=== PATIENT | male | born 1955 | race Caucasian/White ===

== ENCOUNTER 2025-04-11 18:33 | Inpatient (IN) | payer MEDICARE, BC ==
[~2025-04-11] VITALS: Ht 162.6 cm; Wt 66.1 kg
[2025-04-11] MEDS ORDERED: DAPS100T22 PO (18:53)
[2025-04-11] MEDS ORDERED: ATOR1TAB21 PO (18:53)
[2025-04-11] MEDS ORDERED: CHOL25CA2 PO (18:53)
[2025-04-11] MEDS ORDERED: PANT20TA6 PO (18:53)
[2025-04-11] MEDS ORDERED: METF500T13 PO (18:53)
[2025-04-11] MEDS ORDERED: ISOVUE-370 76% 100 ML VIAL As Ordered ONE (19:56)
[2025-04-11 20:29] LABS: PLATELET COUNT, AUTOMATED 215 10^3/uL (150-450)
[2025-04-11 20:45] LABS: EOSINOPHILS 1 % (0-3); LYMPHOCYTES 27 % (16-44); MONOCYTES 7 % (0-5); NEUTROPHILS 65 % (28-66)
[2025-04-11 20:46] LABS: PLATELET CLUMPS SMALL AMT; PLATELET ESTIMATE NORMAL (NORMAL)
[2025-04-11 20:52] LABS: CK-MB VALUE MASS < 1.0 NG/ML (<3.6)
[2025-04-11 21:00] LABS: CPK CREATINE PHOSPHOKINASE 80 U/L (46-171)
[2025-04-11 22:21] LABS: CK-MB VALUE MASS 1.0 NG/ML (<3.6)
[2025-04-11 22:23] LABS: CPK CREATINE PHOSPHOKINASE 79.0 U/L (46-171); MB/CK RELATIVE INDEX 1.26 (< OR =4)
[2025-04-12] MEDS: IPRATROPIUM 0.5 MG/ALBUTEROL 2.5 MG INH SOL UD 3 ML NEB ONE (00:06)
[2025-04-12] MEDS ORDERED: GLUCAGON INJ 1 MG VIAL SC PRN (02:00)
[2025-04-12] MEDS ORDERED: ACETAMINOPHEN 325 MG TAB PO PRN (02:00)
[2025-04-12] MEDS ORDERED: MAALOX 30 ML SUSP *UDC PO PRN (02:00)
[2025-04-12] MEDS ORDERED: MOM 30 ML SUSPENSION UDC PO PRN (02:00)
[2025-04-12] MEDS ORDERED: ALBUTEROL SULFATE 2.5 MG/0.5 ML INH CONCENTRATE NEB SOLN NEB PRN (02:00)
[2025-04-12] MEDS ORDERED: GLUCOSE 4 GM CHEW PO PRN (02:00)
[2025-04-12] MEDS ORDERED: DEXTROSE 50% 50 ML SYRINGE IV PRN (02:00)
[2025-04-12 02:19] LABS: VENOUS BASE EXCESS 2.8 (-2.0-2.0); VENOUS HCO3 27.8 MMOL/L (23.0-27.0); VENOUS O2 SATURATION 88.2 % (60.0-80.0); VENOUS PARTIAL PRESSURE CO2 44.5 mmHg (38.0-50.0); VENOUS PARTIAL PRESSURE O2 54.3 mmHg (30.0-50.0); VENOUS PH 7.414 UNITS (7.330-7.430); VENOUS STANDARD HCO3 26.7 MMOL/L; VENOUS TOTAL CO2 29.2 MMOL/L (24.0-28.0)
[2025-04-12] MEDS: AZITHROMYCIN 250 MG TABLET PO ONE (02:38)
[2025-04-12] MEDS: IPRATROPIUM 0.5 MG/ALBUTEROL 2.5 MG INH SOL UD 3 ML NEB SCH (02:38)
[2025-04-12 02:46] LABS: ALT/SGPT 63 U/L (7.0-40); AST/SGOT 42 U/L (<34); CALCIUM LEVEL 8.6 MG/DL (8.3-10.6); CARBON DIOXIDE LEVEL 27 MMOL/L (20-31); CHLORIDE LEVEL 100 MMOL/L (98-107); CREATININE FOR GFR 0.89 MG/DL (0.70-1.30); GLOMERULAR FILTRATION RATE > 90.0 (>42); MAGNESIUM LEVEL 1.7 MG/DL (1.8-2.4); POTASSIUM SERUM 3.2 MMOL/L (3.5-5.1); SODIUM LEVEL 140 MMOL/L (136-145)
[2025-04-12] MEDS: MAGNESIUM OXIDE 400 MG TAB PO ONE (04:25)
[2025-04-12] MEDS: POTASSIUM CHLORIDE 10MEQ SR TABLET PO ONE (04:26)
[2025-04-12 07:03] LABS: PLATELET COUNT, AUTOMATED 195 10^3/uL (150-450)
[2025-04-12 07:18] LABS: ALT/SGPT 65.0 U/L (7.0-40); AST/SGOT 43.0 U/L (<34); CALCIUM LEVEL 8.5 MG/DL (8.3-10.6); CARBON DIOXIDE LEVEL 27.0 MMOL/L (20-31); CHLORIDE LEVEL 101.0 MMOL/L (98-107); CREATININE FOR GFR 0.93 MG/DL (0.70-1.30); GLOMERULAR FILTRATION RATE 87.8 (>42); MAGNESIUM LEVEL 1.8 MG/DL (1.8-2.4); POTASSIUM SERUM 3.5 MMOL/L (3.5-5.1); SODIUM LEVEL 142.0 MMOL/L (136-145)
[2025-04-12 07:21] LABS: INR 0.94
[2025-04-12] MEDS: DOCUSATE SODIUM 100 MG CAPSULE PO SCH (07:50)
[2025-04-12] MEDS: INSULIN LISPRO (NovoLOG) PER UNIT SC SCH ×2 (07:50→22:30)
[2025-04-12] MEDS: AUGMENTIN 875 MG TAB PO SCH (07:50)
[2025-04-12] MEDS: PANTOPRAZOLE 40MG TAB PO SCH (07:50)
[2025-04-12] MEDS: OSELTAMIVIR PHOSPHATE 75 MG CAP PO SCH (07:50)
[2025-04-12] MEDS ORDERED: PANT-23 PO (08:06)
[2025-04-12] MEDS ORDERED: PRED10TA2 PO (08:08)
[2025-04-12] MEDS ORDERED: CETI-24 PO (08:08)
[2025-04-12] MEDS ORDERED: AZEL1SPR3 NARES (08:08)
[2025-04-12] MEDS ORDERED: PRED20TA PO (08:08)
[2025-04-12] MEDS ORDERED: ALBU8.5H INH (08:08)
[2025-04-12] MEDS ORDERED: HOME MED LIST COMPLETE! XX SCH (08:10)
[2025-04-12 08:31] LABS: VENOUS BASE EXCESS -2.8 (-2.0-2.0); VENOUS HCO3 20.6 MMOL/L (23.0-27.0); VENOUS O2 SATURATION 99.0 % (60.0-80.0); VENOUS PARTIAL PRESSURE CO2 32.1 mmHg (38.0-50.0); VENOUS PARTIAL PRESSURE O2 151.4 mmHg (30.0-50.0); VENOUS PH 7.426 UNITS (7.330-7.430); VENOUS STANDARD HCO3 22.2 MMOL/L; VENOUS TOTAL CO2 21.6 MMOL/L (24.0-28.0)
[2025-04-12] MEDS: ENOXAPARIN 40 MG/0.4 ML SYRINGE (J1650 PER 10MG) SC SCH (09:00)
[2025-04-12] MEDS: CETIRIZINE 10 MG TAB PO SCH (09:59)
[2025-04-12] MEDS: ATORVASTATIN 20 MG TAB PO SCH (09:59)
[2025-04-12 12:48] VITALS: BP 116/76; TEMP 98.1; O2SAT 90
[2025-04-12] MEDS: BUDESONIDE 0.5 MG/2 ML INHALATION SUSPENSION NEB SCH (19:47)
[2025-04-12 19:49] VITALS: O2SAT 91
[2025-04-12 20:00] VITALS: BP 104/41; TEMP 98.1; O2SAT 94
[2025-04-12] MEDS: LanTUS (INSULIN GLARGINE INJ) 1 UNITS/0.01 ML SC SCH (22:32)
[2025-04-13 04:00] VITALS: BP 119/70; TEMP 97.5; O2SAT 92
[2025-04-13 05:34] LABS: BASO # 0.0 10^3/uL (0.0-0.2); BASO % 0.3 % (0.0-1.0); EOS # 0.0 10^3/uL (0.0-0.5); EOS % 0.1 % (0.0-3.0); LYMPH # 1.3 10^3/uL (1.5-5.0); LYMPH % 18.5 % (24.0-44.0); MONO # 0.4 10^3/uL (0.0-0.8); MONO % 4.8 % (2.0-8.0); NEUTROPHILS # 5.5 10^3/uL (1.5-8.5); NEUTROPHILS % 75.1 % (36.0-66.0); PLATELET COUNT, AUTOMATED 204 10^3/uL (150-450)
[2025-04-13 05:51] LABS: CALCIUM LEVEL 8.5 MG/DL (8.3-10.6); CARBON DIOXIDE LEVEL 28 MMOL/L (20-31); CHLORIDE LEVEL 100 MMOL/L (98-107); CREATININE FOR GFR 0.89 MG/DL (0.70-1.30); GLOMERULAR FILTRATION RATE > 90.0 (>42); POTASSIUM SERUM 4.5 MMOL/L (3.5-5.1); SODIUM LEVEL 140 MMOL/L (136-145)
[2025-04-13] MEDS: AZITHROMYCIN 250 MG TABLET PO SCH (09:21)
[2025-04-13 12:00] VITALS: BP 131/76; TEMP 97.5; O2SAT 93
[2025-04-13 13:39] VITALS: O2SAT 93
[2025-04-13 17:45] VITALS: O2SAT 90
[2025-04-13 20:00] VITALS: BP 131/74; TEMP 97.7; O2SAT 91
[2025-04-13] MEDS: LanTUS (INSULIN GLARGINE INJ) 1 UNITS/0.01 ML SC SCH (20:28)
[2025-04-14 02:14] VITALS: O2SAT 92
[2025-04-14 03:55] VITALS: BP 116/57; TEMP 97.5; O2SAT 91
[2025-04-14 04:55] LABS: BASO # 0.0 10^3/uL (0.0-0.2); BASO % 0.2 % (0.0-1.0); EOS # 0.0 10^3/uL (0.0-0.5); EOS % 0.0 % (0.0-3.0); LYMPH # 2.3 10^3/uL (1.5-5.0); LYMPH % 20.3 % (24.0-44.0); MONO # 0.5 10^3/uL (0.0-0.8); MONO % 4.1 % (2.0-8.0); NEUTROPHILS # 8.4 10^3/uL (1.5-8.5); NEUTROPHILS % 74.3 % (36.0-66.0); PLATELET COUNT, AUTOMATED 211 10^3/uL (150-450)
[2025-04-14 05:12] LABS: CALCIUM LEVEL 8.2 MG/DL (8.3-10.6); CARBON DIOXIDE LEVEL 28 MMOL/L (20-31); CHLORIDE LEVEL 100 MMOL/L (98-107); CREATININE FOR GFR 0.76 MG/DL (0.70-1.30); GLOMERULAR FILTRATION RATE > 90.0 (>42); POTASSIUM SERUM 4.5 MMOL/L (3.5-5.1); SODIUM LEVEL 137 MMOL/L (136-145)
[2025-04-14 06:18] LABS: ABG BASE EXCESS 0.6 (-2.0-2.0); ABG HCO3 24.7 MMOL/L (22.0-26.0); ABG O2 SATURATION 98.1 % (95.0-99.0); ABG PARTIAL PRESSURE CO2 37.8 mmHg (35.0-45.0); ABG PARTIAL PRESSURE O2 114.8 mmHg (75.0-100.0); ABG STANDARD HCO3 25.0 MMOL/L. (22.0-26.0); ABG TOTAL CO2 25.9 MMOL/L (23.0-31.0); ABG pH (ARTERIAL) 7.433 UNITS (7.350-7.450)
[2025-04-14 06:50] VITALS: O2SAT 89
[2025-04-14 09:18] VITALS: O2SAT 88
[2025-04-14] MEDS ORDERED: AZIT-12 PO (10:19)
[2025-04-14] MEDS ORDERED: AMOX875T2 PO (10:19)
[2025-04-14] MEDS ORDERED: PANT40TA29 PO (10:19)
[2025-04-14] MEDS ORDERED: OSEL75CA2 PO (10:19)
[2025-04-14] MEDS ORDERED: ALBU8.5H INH (10:19)
[2025-04-14 12:00] VITALS: BP 125/78; TEMP 97.5; O2SAT 93
[2025-04-15] MEDS ORDERED: predniSONE 20 MG TAB PO SCH (09:00)
== END 2025-04-14 12:15 | disposition home or self-care (01) | DRG 193 ==
LOC: M ED 18:33 → M ED INP 04-12 01:56 → M MSPAV 04-12 12:36
PROVIDERS: ADMIT Family Medicine; ATTEND Internal Medicine Nephrology
DX: J10.00 Influenza due to other identified influenza virus with unspecified type of pneumonia (principal); J96.01 Acute respiratory failure with hypoxia; D74.8 Other methemoglobinemias; J47.0 Bronchiectasis with acute lower respiratory infection; J84.112 Idiopathic pulmonary fibrosis; K21.9 Gastro-esophageal reflux disease without esophagitis; E11.65 Type 2 diabetes mellitus with hyperglycemia; E78.5 Hyperlipidemia, unspecified; J12.89 Other viral pneumonia; Z79.84 Long term (current) use of oral hypoglycemic drugs; Z79.899 Other long term (current) drug therapy; Z88.2 Allergy status to sulfonamides; Z88.5 Allergy status to narcotic agent; Z88.8 Allergy status to other drugs, medicaments and biological substances; Z79.52 Long term (current) use of systemic steroids